=== PATIENT | male | born 1935 | race Caucasian/White ===

== ENCOUNTER 2016-08-16 17:12 | Emergency (ER) | payer MEDICARE ==
[~2016-08-16] VITALS: Ht 188 cm; Wt 97.5 kg
--- NOTE | ~2016-08-16 | EKG ---
[place] [address] [facility] [address] ELECTROCARDIOGRAM REPORT Name: JAX GARCIA Room #: TUAN Niño#: [id number] Admission: 08/16/16 Attend Phys: Discharge: 08/16/16 Date of : 31 Report #: [id number] THIS REPORT FOR: //name// [facility] ED Test Date: 2016-08-16 Test Time: 17:42:35 Pat Name: JAX GARCIA Department: Room: Gender: Implementation Engineer: [id number] : 1935 Requested By: Nadia Arceo Order Number: [id number] MD: Bo Álvarez Measurements Intervals [place] Rate: 81 P: 24 MO: 169 QRS: 53 QRSD: 96 T: 48 QT: 399 QTc: 464 Interpretive Statements Sinus rhythm No significant abnormality Compared to ECG 08/10/2016 21:56:52 Atrial premature complex(es) no longer present Electronically Signed On 08-18-2016 8:37:31 RESIDENTIAL TREATMENT COUNSELOR by Bo Álvarez [email or web address] <ELECTRONICALLY SIGNED> By: Bo Álvarez MD, [facility] 08/18/16 0837 [id number] Bo Álvarez MD, FACC /EPI
[~2016-08-16 17:12] MED LIST: ALLEGRA ALLERGY60 MG PO; AMLODIPINE BESYL5 MG PO; ASPIR 8181 M1 PO; ASPIRIN325 PO; BLOOD GLUCOSE1 EAC7; CALCITRIOL0.25 MCG PO; CATAPRES-TTS 10.1 MG PO; COL-RITE50 MG PO; FLONASE 0.05%50 MCG NASAL; GLIPIZIDE5 MG PO; GLUCAGON HCL1 MG IM; HYDRALAZINE 2525 MG PO; IBUPROFEN 200200 M1 PO; LIDODERM 5%1 PATC1 TRANSDERM; METOPROLOL SUCC50 MG PO; METOPROLOL TAR100 MG PO; MILK OF MA2400 MG/10 PO; MIRALAX255 GM PO; OMEPRAZOLE20 M2 PO; OXYCODONE HCL 55 MG PO; PANTOPRAZOLE SO40 M1 PO; RENAL-VITE TAB0.8 MG PO; VITAMINC500 PO
[2016-08-16] MEDS ORDERED: DELTASONE20 MG PO (19:02)
[2016-08-16] MEDS ORDERED: BENADRYL A12.5 MG/5 PO (19:02)
[2016-08-16] MEDS ORDERED: PEPCID AC20 MG PO (19:02)
== END 2016-08-16 20:10 ==
LOC: ER 17:12
DX: R09.81 Nasal congestion (principal); T78.49XA Other allergy, initial encounter; H10.11 Acute atopic conjunctivitis, right eye; J30.89 Other allergic rhinitis; E11.22 Type 2 diabetes mellitus with diabetic chronic kidney disease; N18.6 End stage renal disease; Z99.2 Dependence on renal dialysis; Z86.2 Personal history of diseases of the blood and blood-forming organs and certain disorders involving the immune mechanism; Z85.038 Personal history of other malignant neoplasm of large intestine; Z85.05 Personal history of malignant neoplasm of liver; Z88.2 Allergy status to sulfonamides; Z88.6 Allergy status to analgesic agent; Z87.891 Personal history of nicotine dependence; Y93.89 Activity, other specified; X58.XXXA Exposure to other specified factors, initial encounter; Y92.89 Other specified places as the place of occurrence of the external cause; Y99.8 Other external cause status